=== PATIENT | male | born 1950 | race Caucasian/White ===

== ENCOUNTER 2019-10-09 19:55 | Observation (INO) | payer MEDICARE, BC ==
[2019-10-09] MEDS: Aspirin 81 MG Tab.Chew PO ONE (20:24)
[2019-10-09] MEDS ORDERED: Sodium Chloride 0.9% 10 ML Syringe FLUSH PRN (20:25)
[2019-10-09] MEDS: Aspirin 81 MG Tab.Chew ONE (20:25)
--- NOTE | 2019-10-09 20:25 | EDM.PDOC ---
ED HPI GENERAL MEDICAL PROBLEM - General Chief Complaint: General Stated Complaint: CHEST PAIN Time Seen by Provider: 10/09/19 20:12 Source of Information: Reports: Patient, Significant Other History Limitations: Reports: No Limitations - History of Present Illness INITIAL COMMENTS - FREE TEXT/NARRATIVE: Patient presents with pain in chest that started yesterday with sharp jabs in left upper chest near shoulder and some heaviness/pressure in central chest. Today it has progressively worsened over the last 7 hours. He took nitro 3 times without relief. 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 He says this feels kind of similar to those. No pain in neck, jaw, shoulder or arms. The pain is gone right now. Left Chest Pain Score (Numeric/FACES): 6 - Related Data Allergies Allergy/AdvReac Type Severity Reaction Status Date / Time Sulfa (Sulfonamide Allergy Hives Verified 10/09/19 20:19 Antibiotics) Home Meds: Home Meds ALPRAZolam [Xanax] 0.25 mg PO Q6HR PRN 09/17/14 [History] Aspirin [Brian Chewable] 81 mg PO DAILY 09/17/14 [History] Diclofenac Sodium 75 mg PO DAILY 09/17/14 [History] Metoprolol Tartrate [Lopressor] 50 mg PO BID 09/17/14 [History] Nortriptyline HCl 25 mg PO BEDTIME 09/17/14 [History] [place]-3S/DHA/Epa/Fish Oil [[place]on-3 Fish Oil 1,000 mg Sfgl] 2 cap PO DAILY [History] miSOPROStoL [Cytotec] 200 mcg PO DAILY 09/17/14 [History] Omeprazole 40 mg PO DAILY 10/19/15 [History] Albuterol [Take Home: Albuterol 18 GM, 1 INH Pack] 1 puff INH Q4H PRN 10/09/19 [ History] Clotrimazole/Betamethasone Dip [Lotrisone Cream] 1 gm TP BID PRN 10/09/19 [ History] Gabapentin [Neurontin] 600 mg PO BID 10/09/19 [History] Ibuprofen [Advil] 200 mg PO ASDIRECTED 10/09/19 [History] Metoprolol Tartrate [Lopressor] 50 mg PO BEDTIME 10/09/19 [History] Nitroglycerin [Nitrostat] 0.4 mg SL ASDIRECTED 10/09/19 [History] Umeclidinium Brm/Vilanterol Tr [Anoro Ellipta 62.5-25 MCG] 1 each IH DAILY 10/08 [History] atorvaSTATin [Lipitor] 80 mg PO BEDTIME 10/09/19 [History] cloNIDine HCL [Clonidine HCl] 0.1 mg PO BID 10/09/19 [History] Past Medical History Cardiovascular History: Reports: Bypass, Hypertension, Stents Genitourinary History: Reports: BPH Musculoskeletal History: Reports: Arthritis, Neck Pain, Chronic Psychiatric History: Reports: Panic Attack - Past Surgical History Cardiovascular Surgical History: Reports: Coronary Artery Bypass Social & Family History - Family History Family Medical History: Noncontributory - Living Situation & Occupation Living situation: Reports: ED ROS GENERAL - Review of Systems Review Of Systems: See Below Constitutional: Denies: Fever, Chills, Malaise, Weakness, Diaphoresis HEENT: Denies: Ear Pain, Throat Pain, Vision Change Respiratory: Denies: Shortness of Breath, Cough Cardiovascular: Reports: Chest Pain. Denies: Lightheadedness, Syncope GI/Abdominal: Denies: Abdominal Pain, Diarrhea, Vomiting : Denies: Dysuria Musculoskeletal: Denies: Neck Pain, Shoulder Pain, Arm Pain, Back Pain, Hand Pain Skin: Denies: Cyanosis, Jaundice, Mottled, Pallor, Diaphoresis Neurological: Denies: Confusion, Dizziness, Headache, Seizure, Syncope, Trouble Speaking, Difficulty Walking Psychiatric: Denies: Agitation, Anxiety, Confusion ED EXAM, GENERAL - Physical Exam Exam: See Below Exam Limited By: No Limitations General Appearance: Alert, WD/WN, No Apparent Distress Eye Exam: Bilateral Eye: EOMI, Normal Inspection Ears: Normal External Exam, Hearing Grossly Normal Nose: Normal Inspection, No Blood Throat/Mouth: Normal Inspection, Normal Lips, Normal Voice, No Airway Compromise Head: Atraumatic, Normocephalic Neck: Normal Inspection, Supple, Non-Tender, Full Range of Motion Respiratory/Chest: No Respiratory Distress, Lungs Clear, Normal Breath Sounds, No Accessory Muscle Use, Other (chest tender to palpation on left anterior and upper which is reproductive of symptoms) Cardiovascular: Regular Rate, Rhythm, No Murmur GI/Abdominal: Normal Bowel Sounds, Soft, Non-Tender, No Organomegaly Back Exam: Normal Inspection, Full Range of Motion. No: CVA Tenderness (L), CVA Tenderness (R) Extremities: Normal Inspection, Normal Range of Motion Neurological: Alert, Oriented, Normal Cognition, No Motor/Sensory Deficits Psychiatric: Normal Affect, Normal Mood Skin Exam: Warm, Dry, Intact, Normal Color, No Rash Course - Vital Signs Last Recorded V/S: Last Vital Signs Temp 97.5 F 10/09/19 20:00 Pulse 56 L 10/09/19 21:28 Resp 17 10/09/19 21:28 BP 161/74 H 10/09/19 21:28 Pulse Ox 96 10/09/19 21:28 - Orders/Labs/Meds Orders: Active Orders 24 hr Category Date Time Status Patient Status Manage Transfer [TRANSFER] Routine ADT 10/09/19 21:31 Ordered Patient Status [ADT] Routine ADT 10/09/19 21:30 Active EKG Documentation Completion [RC] ASDIRECTED Care 10/09/19 20:21 Active Peripheral IV Care [RC] . DIRECTED Care 10/09/19 20:25 Active TROPONIN I [CHEM] Routine Lab 10/10/19 01:00 Ordered TROPONIN I [CHEM] Routine Lab 10/10/19 06:00 Ordered Sodium Chloride 0.9% [Saline Flush] Med 10/09/19 20:25 Active 10 ml FLUSH Q8HR PRN Peripheral IV Insertion Adult [OM.PC] Routine Oth 10/09/19 20:25 Ordered Resuscitation Status Routine Resus Stat 10/09/19 21:32 Ordered EKG 12 Lead [EK] Routine Ther 10/09/19 20:20 Ordered Medication Orders Sodium Chloride (Saline Flush) 10 ml FLUSH Q8HR PRN PRN Reason: keep vein open Labs: Laboratory Tests 10/09/19 10/09/19 Range/Units 20:17 20:17 WBC 7.11 (5.00-10.00) 10^3/uL RBC 4.48 L (4.50-6.00) 10^6/uL Hgb 14.1 (13.0-17.0) g/dL Hct 43.3 (40.0-52.0) % MCV 96.7 H D (82.0-92.0) fL MCH 31.5 H (27.0-31.0) pg MCHC 32.6 (32.0-36.0) g/dL RDW 14.8 H (11.5-14.5) % Plt Count 206 (150-400) 10^3/uL MPV 9.4 (7.4-10.4) fL Immature Gran % (Auto) 0.3 (0.0-5.0) % Neut % (Auto) 57.2 (50.0-70.0) % Lymph % (Auto) 29.1 (20.0-40.0) % [place] % (Auto) 8.2 H (2.0-8.0) % Eos % (Auto) 4.5 H (1.0-3.0) % Baso % (Auto) 0.7 (0.0-1.0) % Immature Gran # (Auto) 0.02 (0.00-0.50) 10^3/uL Neut # (Auto) 4.07 (2.50-7.00) 10^3/uL Lymph # (Auto) 2.07 (1.00-4.00) 10^3/uL [place] # (Auto) 0.58 (0.10-0.80) 10^3/uL Eos # (Auto) 0.32 H (0.10-0.30) 10^3/uL Baso # (Auto) 0.05 (0.00-0.10) 10^3/uL Sodium 142 (136-145) mmol/L Potassium 4.7 (3.3-5.3) mmol/L Chloride 105 (98-115) mmol/L Carbon Dioxide 28.6 (21.0-32.0) mmol/L Anion Gap 13.1 (5-15) mmol/L BUN 21 (6-25) mg/dL Creatinine 0.78 (0.51-1.17) mg/dL Est Cr Clr Drug Dosing 90.64 mL/min Estimated GFR (MDRD) > 60 mL/min Glucose 124 H (75 - 99) mg/dL Calcium 9.0 (8.7-10.3) mg/dL Total Bilirubin 0.4 (0.2-1.0) mg/dL AST 25 (15-37) U/L ALT 52 (12-78) U/L Alkaline Phosphatase 70 (46-116) IU/L Troponin I < 0.04 (0.00-0.070) ng/mL Total Protein 7.0 (6.4-8.2) g/dL Albumin 3.49 (3.00-4.80) g/dL Meds: Medications Generic Name Dose Route Start Last Admin Trade Name Freq PRN Reason Stop Dose Admin Sodium Chloride 10 ml 10/09/19 20:25 Saline Flush FLUSH Q8HR PRN keep vein open Discontinued Medications Generic Name Dose Route Start Last Admin Trade Name Freq PRN Reason Stop Dose Admin Aspirin 324 mg 10/09/19 20:20 10/09/19 20:24 Aspirin PO 10/09/19 20:21 324 mg ONETIME ONE Administration Aspirin Confirm 10/09/19 20:20 10/09/19 20:25 Aspirin Administered 10/09/19 20:21 Not Given Dose 324 mg .ROUTE .STK-MED ONE - Re-Assessments/Exams Free Text/Narrative Re-Assessment/Exam: 10/09/19 21:36 Trop and EKG are okay. Pt is still having a short episode of chest pain in left shoulder about every 20 minutes but pretty mild. Although the normal trop after several hours of symptoms is quite reassuring, with his history and ongoing symptoms I recommended observation in house over night. Patient and his agree. Discussed case with Dr. Mendez who accepted for admission. Pt stable. Departure - Departure Time of Disposition: 21:35 Disposition: Refer to Observation Condition: Good Clinical Impression: Chest pain Qualifiers: Chest pain type: unspecified Qualified Code(s): R07.9 - Chest pain, unspecified - Discharge Information Referrals: Shannon Alatorre PA-C [Primary Care Provider] - Forms: ED Department Discharge Sepsis Event Note - Evaluation Sepsis Screening Result: No Definite Risk - Focused Exam Vital Signs: Vital Signs Temp Pulse Resp BP Pulse Ox 10/09/19 21:28 56 L 17 161/74 H 96 10/09/19 20:30 60 17 162/76 H 94 L 10/09/19 20:00 97.5 F 64 27 H 189/81 H 95 Date Exam was Performed: 10/09/19 Time Exam was Performed: 21:39 - My Orders Last 24 Hours: My Active Orders 10/09/19 20:20 EKG 12 Lead [EK] Routine 10/09/19 20:21 EKG Documentation Completion [RC] ASDIRECTED 10/09/19 20:25 Peripheral IV Care [RC] . DIRECTED Sodium Chloride 0.9% [Saline Flush] 10 ml FLUSH Q8HR PRN Peripheral IV Insertion Adult [OM.PC] Routine 10/09/19 21:30 Patient Status [ADT] Routine 10/09/19 21:31 Patient Status Manage Transfer [TRANSFER] Routine 10/09/19 21:32 Resuscitation Status Routine 10/10/19 01:00 TROPONIN I [CHEM] Routine 10/10/19 06:00 TROPONIN I [CHEM] Routine - Assessment/Plan Last 24 Hours: My Active Orders 10/09/19 20:20 EKG 12 Lead [EK] Routine 10/09/19 20:21 EKG Documentation Completion [RC] ASDIRECTED 10/09/19 20:25 Peripheral IV Care [RC] . DIRECTED Sodium Chloride 0.9% [Saline Flush] 10 ml FLUSH Q8HR PRN Peripheral IV Insertion Adult [OM.PC] Routine 10/09/19 21:30 Patient Status [ADT] Routine 10/09/19 21:31 Patient Status Manage Transfer [TRANSFER] Routine 10/09/19 21:32 Resuscitation Status Routine 10/10/19 01:00 TROPONIN I [CHEM] Routine 10/10/19 06:00 TROPONIN I [CHEM] Routine
[2019-10-09 20:54] LABS: ANION GAP 13.1 mmol/L (5-15); CHLORIDE,CL 105 mmol/L (98-115); SODIUM,NA 142 mmol/L (136-145)
[2019-10-09] MEDS ORDERED: Nitroglycerin 0.4 MG Tab.SL SL PRN (21:40)
[2019-10-09] MEDS ORDERED: Atropine 0.1 MG/ML 10 ML Syringe IVPUSH PRN (21:40)
[2019-10-09] MEDS ORDERED: Lidocaine 2% 100 MG/5 ML Syringe IVPUSH PRN (21:40)
[2019-10-09] MEDS ORDERED: EPINEPHrine 1:10,000 1 MG/10 ML Syringe IVPUSH PRN (21:40)
[2019-10-09] MEDS: ALPRAZolam 0.25 MG Tab PO PRN (22:09)
[2019-10-09] MEDS ORDERED: ALPRAZolam 0.25 MG Tab PO PRN (22:55)
[2019-10-10] MEDS: Omeprazole 20 MG Cap.CR PO SCH (09:27)
[2019-10-10] MEDS: Aspirin 81 MG Tab.Chew PO SCH (09:28)
[2019-10-10] MEDS: cloNIDine 0.1 MG Tab PO SCH (09:28)
[2019-10-10] MEDS: Metoprolol Tartrate 50 MG Tab PO SCH (09:28)
[2019-10-10] MEDS: Gabapentin 300 MG Cap PO SCH (09:29)
[2019-10-10] MEDS: Indacaterol/Glycopyrrolate 1 EA Cap.W.Dev Kit of 6 IH SCH (10:04)
--- NOTE | 2019-10-10 10:31 | PCM.DCSUM1 ---
Discharge Summary - Hospital Course Free Text/Narrative:: Date of admission: 10/09/2019 Date of discharge: 10/10/2019 Admission diagnoses: # Chest pain # CAD, s/p CABG in 2003 Discharge diagnoses: # Chest pain, ruled out NV # CAD, s/p CABG in 2003 Consultations: none Procedures: none Hospital course: 69 year old male with previous history of known NV and CABG in 2003 admitted from the ED to observation status on 10/09/2019 with chest pain, rule out NV. Patient presented to the ED via private care with pain that started one day prior to presentation described as sharp jabs in the left upper chest near the left shoulder and some heaviness/pressure in the central chest. Patient states it is similar to pain he felt with previous MIs. No pain in the neck, jaw, shoulder or arms. He took three doses of nitro at home without relief. Patient remained chest pain free overnight. Troponin negative x 3, <0.04 this AM. BMP and CBC unremarkable. No overnight concerns. Patient ready for discharge. Suspect non cardiac cause of chest pain. Noted that patient is on chronic NSAIDS with diclofenac and as needed ibuprofen despite history of known CAD. Discussed risks with patient and he has been off of diclofenac in the past , but had increase in pain and subsequently restarted. Discharge and follow-up recommendations: - Discharge to home - New medications at discharge: none - Follow-up next week for telemedicine visit with Shannon Alatorre - Consider alternative medication (possibly SNRI) to NSAID for chronic arthritis pain - Discharge Data Discharge Date: 10/10/19 Discharge Disposition: Home, Self-Care 01 Condition: Good - Referral to Home Health Primary Care Physician: Shannon Alatorre PA-C - Patient Instructions Diet: Heart Healthy Diet Activity: As Tolerated Notify Provider of: Increased Pain - Discharge Plan *PRESCRIPTION DRUG MONITORING PROGRAM REVIEWED*: Not Applicable *COPY OF PRESCRIPTION DRUG MONITORING REPORT IN PATIENT BEREKET: Not Applicable Home Medications: Home Meds ALPRAZolam [Xanax] 0.25 mg PO Q6HR PRN 09/17/14 [History] Aspirin [Brain Chewable Aspirin] 81 mg PO DAILY 09/17/14 [History] Diclofenac Sodium 75 mg PO DAILY 09/17/14 [History] Metoprolol Tartrate [Lopressor] 50 mg PO DAILY 09/17/14 [History] Nortriptyline HCl 25 mg PO BEDTIME 09/17/14 [History] [place]-3S/DHA/Epa/Fish Oil [[place]-3 Fish Oil 1,000 mg Sfgl] 2 cap PO DAILY [History] miSOPROStoL [Cytotec] 200 mcg PO DAILY 09/17/14 [History] Omeprazole 20 mg PO DAILY 10/19/15 [History] Albuterol [Take Home: Albuterol 18 GM, 1 INH Pack] 1 puff INH Q4H PRN 10/09/19 [ History] Clotrimazole/Betamethasone Dip [Lotrisone Cream] 1 gm TP BID PRN 10/09/19 [ History] Gabapentin [Neurontin] 600 mg PO BID 10/09/19 [History] Ibuprofen [Advil] 200 mg PO ASDIRECTED 10/09/19 [History] Metoprolol Tartrate [Lopressor] 50 mg PO BEDTIME 10/09/19 [History] Nitroglycerin [Nitrostat] 0.4 mg SL ASDIRECTED 10/09/19 [History] Umeclidinium Brm/Vilanterol Tr [Anoro Ellipta 62.5-25 MCG] 1 each IH DAILY 10/08 [History] atorvaSTATin [Lipitor] 80 mg PO BEDTIME 10/09/19 [History] cloNIDine HCL [Clonidine HCl] 0.1 mg PO BID 10/09/19 [History] Referrals: Shannon Alatorre PA-C [Primary Care Provider] - (Telemedicine MyChart visit at 10 AM. Sign into [facility] Chart 15 minutes before appt and go to Telemedicine. It should give you directions.) - Discharge Summary/Plan Comment DC Time >30 min.: Yes Discharge Summary/Plan Comment: This is a same day admission/discharge - Patient Data Vitals - Most Recent: Last Vital Signs Temp 37.2 C 10/10/19 06:46 Pulse 61 10/10/19 09:28 Resp 16 10/10/19 06:46 BP 150/88 H 10/10/19 09:28 Pulse Ox 98 10/10/19 06:46 Weight - Most Recent: 107.955 kg Lab Results - Last 24 hrs: Laboratory Results - last 24 hr 10/09/19 10/09/19 10/10/19 Range/Units 20:17 20:17 01:20 WBC 7.11 (5.00-10.00) 10^3/uL RBC 4.48 L (4.50-6.00) 10^6/uL Hgb 14.1 (13.0-17.0) g/dL Hct 43.3 (40.0-52.0) % MCV 96.7 H D (82.0-92.0) fL MCH 31.5 H (27.0-31.0) pg MCHC 32.6 (32.0-36.0) g/dL RDW 14.8 H (11.5-14.5) % Plt Count 206 (150-400) 10^3/uL MPV 9.4 (7.4-10.4) fL Immature Gran % (Auto) 0.3 (0.0-5.0) % Neut % (Auto) 57.2 (50.0-70.0) % Lymph % (Auto) 29.1 (20.0-40.0) % [place] % (Auto) 8.2 H (2.0-8.0) % Eos % (Auto) 4.5 H (1.0-3.0) % Baso % (Auto) 0.7 (0.0-1.0) % Immature Gran # (Auto) 0.02 (0.00-0.50) 10^3/uL Neut # (Auto) 4.07 (2.50-7.00) 10^3/uL Lymph # (Auto) 2.07 (1.00-4.00) 10^3/uL [place] # (Auto) 0.58 (0.10-0.80) 10^3/uL Eos # (Auto) 0.32 H (0.10-0.30) 10^3/uL Baso # (Auto) 0.05 (0.00-0.10) 10^3/uL Sodium 142 (136-145) mmol/L Potassium 4.7 (3.3-5.3) mmol/L Chloride 105 (98-115) mmol/L Carbon Dioxide 28.6 (21.0-32.0) mmol/L Anion Gap 13.1 (5-15) mmol/L BUN 21 (6-25) mg/dL Creatinine 0.78 (0.51-1.17) mg/dL Est Cr Clr Drug Dosing 90.64 mL/min Estimated GFR (MDRD) > 60 mL/min Glucose 124 H (75 - 99) mg/dL Calcium 9.0 (8.7-10.3) mg/dL Total Bilirubin 0.4 (0.2-1.0) mg/dL AST 25 (15-37) U/L ALT 52 (12-78) U/L Alkaline Phosphatase 70 (46-116) IU/L Troponin I < 0.04 0.04 (0.00-0.070) ng/mL Total Protein 7.0 (6.4-8.2) g/dL Albumin 3.49 (3.00-4.80) g/dL 10/10/19 Range/Units 07:00 WBC (5.00-10.00) 10^3/uL RBC (4.50-6.00) 10^6/uL Hgb (13.0-17.0) g/dL Hct (40.0-52.0) % MCV (82.0-92.0) fL MCH (27.0-31.0) pg MCHC (32.0-36.0) g/dL RDW (11.5-14.5) % Plt Count (150-400) 10^3/uL MPV (7.4-10.4) fL Immature Gran % (Auto) (0.0-5.0) % Neut % (Auto) (50.0-70.0) % Lymph % (Auto) (20.0-40.0) % [place] % (Auto) (2.0-8.0) % Eos % (Auto) (1.0-3.0) % Baso % (Auto) (0.0-1.0) % Immature Gran # (Auto) (0.00-0.50) 10^3/uL Neut # (Auto) (2.50-7.00) 10^3/uL Lymph # (Auto) (1.00-4.00) 10^3/uL [place] # (Auto) (0.10-0.80) 10^3/uL Eos # (Auto) (0.10-0.30) 10^3/uL Baso # (Auto) (0.00-0.10) 10^3/uL Sodium (136-145) mmol/L Potassium (3.3-5.3) mmol/L Chloride (98-115) mmol/L Carbon Dioxide (21.0-32.0) mmol/L Anion Gap (5-15) mmol/L BUN (6-25) mg/dL Creatinine (0.51-1.17) mg/dL Est Cr Clr Drug Dosing mL/min Estimated GFR (MDRD) mL/min Glucose (75 - 99) mg/dL Calcium (8.7-10.3) mg/dL Total Bilirubin (0.2-1.0) mg/dL AST (15-37) U/L ALT (12-78) U/L Alkaline Phosphatase (46-116) IU/L Troponin I < 0.04 (0.00-0.070) ng/mL Total Protein (6.4-8.2) g/dL Albumin (3.00-4.80) g/dL Med Orders - Current: Current Medications Alprazolam (Xanax) 0.25 mg PO Q6H PRN PRN Reason: Anxiety Last Admin: 10/09/19 22:09 Dose: 0.25 mg Alprazolam (Xanax) 0.25 mg PO Q6HR PRN PRN Reason: Anxiety Aspirin (Aspirin) 81 mg PO DAILY [facility] Last Admin: 10/10/19 09:28 Dose: Not Given Atorvastatin Calcium (Lipitor) 80 mg PO BEDTIME [facility] Atropine Sulfate (Atropine 0.1 Mg/Ml) 0 mg IVPUSH ASDIRECTED PRN PRN Reason: Heart. Clonidine HCl (Catapres) 0.1 mg PO BID [facility] Last Admin: 10/10/19 09:28 Dose: Not Given Epinephrine HCl (Epinephrine 1:10,000) 1 mg IVPUSH ASDIRECTED PRN PRN Reason: Heart. Gabapentin (Neurontin) 600 mg PO BID [facility] Last Admin: 10/10/19 09:29 Dose: Not Given Glycopyrrolate/Indacaterol (Utibron Neohaler 27.5-15.6 Mcg) 1 each IH BID [facility] Last Admin: 10/10/19 10:04 Dose: Not Given Lidocaine HCl (Xylocaine 2%) 0 mg IVPUSH ASDIRECTED PRN PRN Reason: Heart. Metoprolol Tartrate (Lopressor) 50 mg PO BEDTIME [facility] Metoprolol Tartrate (Lopressor) 50 mg PO DAILY [facility] Last Admin: 10/10/19 09:28 Dose: Not Given Nitroglycerin (Nitrostat) 0.4 mg SL ASDIRECTED PRN PRN Reason: Heart. Nortriptyline HCl (Nortriptyline) 25 mg PO BEDTIME [facility] Omeprazole (Omeprazole) 20 mg PO ACBREAKFAST [facility] Last Admin: 10/10/19 09:27 Dose: Not Given Sodium Chloride (Saline Flush) 10 ml FLUSH Q8HR PRN PRN Reason: keep vein open Discontinued Medications Aspirin (Aspirin) 324 mg PO ONETIME ONE Stop: 10/09/19 20:21 Last Admin: 10/09/19 20:24 Dose: 324 mg Aspirin (Aspirin) Confirm Administered Dose 324 mg .ROUTE .STK-MED ONE Stop: 10/09/19 20:21 Last Admin: 10/09/19 20:25 Dose: Not Given
--- NOTE | 2019-10-10 10:32 | PCM.HP.2 ---
H&P History of Present Illness - General Date of Service: 10/10/19 Admit Problem/Dx: Admission Diagnosis/Problem Admission Diagnosis/Problem Chest pain Source of Information: Patient History Limitations: Reports: No Limitations - History of Present Illness Initial Comments - Free Text/Narative: 69 year old male with previous history of known AL and CABG in 2003 admitted from the ED to observation status on 10/09/2019 with chest pain, rule out AL. Patient presented to the ED via private care with pain that started one day prior to presentation described as sharp jabs in the left upper chest near the left shoulder and some heaviness/pressure in the central chest. Patient states it is similar to pain he felt with previous MIs. No pain in the neck, jaw, shoulder or arms. He took three doses of nitro at home without relief. This morning on rounds patient has had no recurrence of pain. No over night concerns and feels ready for discharge. Left Chest Pain Score (Numeric/FACES): 6 - Related Data Allergies/Adverse Reactions: Allergies Allergy/AdvReac Type Severity Reaction Status Date / Time Sulfa (Sulfonamide Allergy Hives Verified 10/09/19 20:19 Antibiotics) Home Medications: Home Meds ALPRAZolam [Xanax] 0.25 mg PO Q6HR PRN 09/17/14 [History] Aspirin [Brian Chewable Aspirin] 81 mg PO DAILY 09/17/14 [History] Diclofenac Sodium 75 mg PO DAILY 09/17/14 [History] Metoprolol Tartrate [Lopressor] 50 mg PO DAILY 09/17/14 [History] Nortriptyline HCl 25 mg PO BEDTIME 09/17/14 [History] Hudson-3S/DHA/Epa/Fish Oil [Hudson-3 Fish Oil 1,000 mg Sfgl] 2 cap PO DAILY [History] miSOPROStoL [Cytotec] 200 mcg PO DAILY 09/17/14 [History] Omeprazole 20 mg PO DAILY 10/19/15 [History] Albuterol [Take Home: Albuterol 18 GM, 1 INH Pack] 1 puff INH Q4H PRN 10/09/19 [ History] Clotrimazole/Betamethasone Dip [Lotrisone Cream] 1 gm TP BID PRN 10/09/19 [ History] Gabapentin [Neurontin] 600 mg PO BID 10/09/19 [History] Ibuprofen [Advil] 200 mg PO ASDIRECTED 10/09/19 [History] Metoprolol Tartrate [Lopressor] 50 mg PO BEDTIME 10/09/19 [History] Nitroglycerin [Nitrostat] 0.4 mg SL ASDIRECTED 10/09/19 [History] Umeclidinium Brm/Vilanterol Tr [Anoro Ellipta 62.5-25 MCG] 1 each IH DAILY 10/08 [History] atorvaSTATin [Lipitor] 80 mg PO BEDTIME 10/09/19 [History] cloNIDine HCL [Clonidine HCl] 0.1 mg PO BID 10/09/19 [History] Past Medical History Cardiovascular History: Reports: Bypass, Hypertension, AL, Stents Gastrointestinal History: Reports: Diverticulosis, Irritable Bowel Syndrome Genitourinary History: Reports: BPH Musculoskeletal History: Reports: Arthritis, Back Pain, Chronic, Neck Pain, Chronic Neurological History: Reports: Neuropathy, Peripheral Psychiatric History: Reports: Panic Attack - Past Surgical History Cardiovascular Surgical History: Reports: Coronary Artery Bypass Respiratory Surgical History: Reports: None GI Surgical History: Reports: Other (See Below) Other GI Surgeries/Procedures: lap-sujata Musculoskeletal Surgical History: Reports: Carpal Tunnel, Knee Replacement Social & Family History - Family History Cardiac: Reports: CAD - Tobacco Use Smoking Status *Q: Former Smoker Used Tobacco, but Quit: Yes Month/Year Tobacco Last Used: quit 2003 - Caffeine Use Caffeine Use: Reports: Soda, Tea - Recreational Drug Use Recreational Drug Use: No - Living Situation & Occupation Living situation: Reports: H&P Review of Systems - Review of Systems: Review Of Systems: See Below General: Denies: Fever, Chills, Fatigue HEENT: Denies: Ear Pain, Eye Pain, Headaches Pulmonary: Denies: Shortness of Breath, Wheezing, Cough Cardiovascular: Denies: Chest Pain, Palpitations, Dyspnea on Exertion, Edema Gastrointestinal: Denies: Abdominal Pain, Constipation, Diarrhea, Nausea Genitourinary: Denies: Dysuria, Hematuria, Flank Pain Musculoskeletal: Denies: Neck Pain, Shoulder Pain, Arm Pain Skin: Denies: Cyanosis, Jaundice, Rash Psychiatric: Denies: Confusion, Depression, Mood Lability Neurological: Denies: Confusion, Dizziness, Headache Exam - Exam Exam: See Below - Vital Signs Vital Signs: Last Vital Signs Temp 37.2 C 10/10/19 06:46 Pulse 61 10/10/19 09:28 Resp 16 10/10/19 06:46 BP 150/88 H 10/10/19 09:28 Pulse Ox 98 10/10/19 06:46 Weight: 107.955 kg - Exam Physical Exam Comments:: GENERAL: Well-appearing adult sitting up in bed, in no acute distress. in room. HEENT: Normocephalic, atraumatic. Conjunctiva clear. Nares patent without discharge. Mucous membranes moist, posterior pharynx unremarkable. NECK: Supple, no masses. CV: Regular rate and rhythm, no murmurs, rubs, or gallops. PULMONARY: Normal effort, clear to auscultation bilaterally, no wheezes, rales, or rhonchi. ABDOMEN: Positive bowel sounds, soft, nontender, nondistended. EXTREMITIES: No edema, cyanosis, or clubbing. MUSCULOSKELETAL: Moves all extremities well. NEUROLOGICAL: No obvious deficits. DERMATOLOGIC: No rashes or suspicious lesions in exposed areas. PSYCHIATRIC: Alert, interactive, appropriate affect. - Patient Data Lab Results Last 24 hrs: Laboratory Results - last 24 hr 10/09/19 10/09/19 10/10/19 Range/Units 20:17 20:17 01:20 WBC 7.11 (5.00-10.00) 10^3/uL RBC 4.48 L (4.50-6.00) 10^6/uL Hgb 14.1 (13.0-17.0) g/dL Hct 43.3 (40.0-52.0) % MCV 96.7 H D (82.0-92.0) fL MCH 31.5 H (27.0-31.0) pg MCHC 32.6 (32.0-36.0) g/dL RDW 14.8 H (11.5-14.5) % Plt Count 206 (150-400) 10^3/uL MPV 9.4 (7.4-10.4) fL Immature Gran % (Auto) 0.3 (0.0-5.0) % Neut % (Auto) 57.2 (50.0-70.0) % Lymph % (Auto) 29.1 (20.0-40.0) % [place] % (Auto) 8.2 H (2.0-8.0) % Eos % (Auto) 4.5 H (1.0-3.0) % Baso % (Auto) 0.7 (0.0-1.0) % Immature Gran # (Auto) 0.02 (0.00-0.50) 10^3/uL Neut # (Auto) 4.07 (2.50-7.00) 10^3/uL Lymph # (Auto) 2.07 (1.00-4.00) 10^3/uL [place] # (Auto) 0.58 (0.10-0.80) 10^3/uL Eos # (Auto) 0.32 H (0.10-0.30) 10^3/uL Baso # (Auto) 0.05 (0.00-0.10) 10^3/uL Sodium 142 (136-145) mmol/L Potassium 4.7 (3.3-5.3) mmol/L Chloride 105 (98-115) mmol/L Carbon Dioxide 28.6 (21.0-32.0) mmol/L Anion Gap 13.1 (5-15) mmol/L BUN 21 (6-25) mg/dL Creatinine 0.78 (0.51-1.17) mg/dL Est Cr Clr Drug Dosing 90.64 mL/min Estimated GFR (MDRD) > 60 mL/min Glucose 124 H (75 - 99) mg/dL Calcium 9.0 (8.7-10.3) mg/dL Total Bilirubin 0.4 (0.2-1.0) mg/dL AST 25 (15-37) U/L ALT 52 (12-78) U/L Alkaline Phosphatase 70 (46-116) IU/L Troponin I < 0.04 0.04 (0.00-0.070) ng/mL Total Protein 7.0 (6.4-8.2) g/dL Albumin 3.49 (3.00-4.80) g/dL 10/10/19 Range/Units 07:00 WBC (5.00-10.00) 10^3/uL RBC (4.50-6.00) 10^6/uL Hgb (13.0-17.0) g/dL Hct (40.0-52.0) % MCV (82.0-92.0) fL MCH (27.0-31.0) pg MCHC (32.0-36.0) g/dL RDW (11.5-14.5) % Plt Count (150-400) 10^3/uL MPV (7.4-10.4) fL Immature Gran % (Auto) (0.0-5.0) % Neut % (Auto) (50.0-70.0) % Lymph % (Auto) (20.0-40.0) % [place] % (Auto) (2.0-8.0) % Eos % (Auto) (1.0-3.0) % Baso % (Auto) (0.0-1.0) % Immature Gran # (Auto) (0.00-0.50) 10^3/uL Neut # (Auto) (2.50-7.00) 10^3/uL Lymph # (Auto) (1.00-4.00) 10^3/uL [place] # (Auto) (0.10-0.80) 10^3/uL Eos # (Auto) (0.10-0.30) 10^3/uL Baso # (Auto) (0.00-0.10) 10^3/uL Sodium (136-145) mmol/L Potassium (3.3-5.3) mmol/L Chloride (98-115) mmol/L Carbon Dioxide (21.0-32.0) mmol/L Anion Gap (5-15) mmol/L BUN (6-25) mg/dL Creatinine (0.51-1.17) mg/dL Est Cr Clr Drug Dosing mL/min Estimated GFR (MDRD) mL/min Glucose (75 - 99) mg/dL Calcium (8.7-10.3) mg/dL Total Bilirubin (0.2-1.0) mg/dL AST (15-37) U/L ALT (12-78) U/L Alkaline Phosphatase (46-116) IU/L Troponin I < 0.04 (0.00-0.070) ng/mL Total Protein (6.4-8.2) g/dL Albumin (3.00-4.80) g/dL Result Diagrams: 10/09/19 20:17 10/09/19 20:17 Sepsis Event Note - Evaluation Sepsis Screening Result: No Definite Risk - Focused Exam Vital Signs: Vital Signs Temp Pulse Pulse Resp BP BP Pulse Ox 10/10/19 09:28 61 150/88 H 10/10/19 06:46 37.2 C 55 L 16 136/87 98 10/10/19 03:00 35.9 C L 60 20 151/89 H 94 L Date Exam was Performed: 10/10/19 Time Exam was Performed: 11:09 Problem List Initiated/Reviewed/Updated: Yes Orders Last 24hrs: Active Orders 24 hr Category Date Time Status Patient Status Manage Transfer [TRANSFER] Routine ADT 10/09/19 21:31 Active Patient Status [ADT] Routine ADT 10/09/19 21:30 Active Ready for Discharge [RC] PER UNIT ROUTINE Care 10/10/19 10:28 Ordered Telemetry Monitoring [Cardiac Monitoring] [RC] 2300, Care 10/09/19 21:40 Active 0300,0700 Up With Assistance [RC] ASDIRECTED Care 10/09/19 22:54 Active Heart Healthy Diet [DIET] Diet 10/10/19 Breakfast Active ALPRAZolam [Xanax] Med 10/09/19 21:41 Active 0.25 mg PO Q6H PRN ALPRAZolam [Xanax] Med 10/09/19 22:55 Active 0.25 mg PO Q6HR PRN Aspirin Med 10/10/19 09:00 Active 81 mg PO DAILY Atropine [Atropine 0.1 MG/ML] Med 10/09/19 21:40 Active See Dose Instructions IVPUSH ASDIRECTED PRN EPINEPHrine [EPINEPHrine 1:10,000] Med 10/09/19 21:40 Active 1 mg IVPUSH ASDIRECTED PRN Gabapentin [Neurontin] Med 10/10/19 09:00 Active 600 mg PO BID Indacaterol/Glycopyrrolate [Utibron Neohaler 27.5-15.6 Med 10/10/19 09:00 Active MCG] 1 each IH BID Lidocaine 2% [Xylocaine 2%] Med 10/09/19 21:40 Active See Dose Instructions IVPUSH ASDIRECTED PRN Metoprolol Tartrate [Lopressor] Med 10/10/19 21:00 Active 50 mg PO BEDTIME Metoprolol Tartrate [Lopressor] Med 10/10/19 09:00 Active 50 mg PO DAILY Nitroglycerin [Nitrostat] Med 10/09/19 21:40 Active 0.4 mg SL ASDIRECTED PRN Nortriptyline Med 10/10/19 21:00 Active 25 mg PO BEDTIME Omeprazole Med 10/10/19 07:30 Active 20 mg PO ACBREAKFAST Sodium Chloride 0.9% [Saline Flush] Med 10/09/19 20:25 Active 10 ml FLUSH Q8HR PRN atorvaSTATin [Lipitor] Med 10/10/19 21:00 Active 80 mg PO BEDTIME cloNIDine [Catapres] Med 10/10/19 09:00 Active 0.1 mg PO BID Peripheral IV Insertion Adult [OM.PC] Routine Oth 10/09/19 20:25 Ordered Resuscitation Status Routine Resus Stat 10/09/19 21:32 Ordered Medication Orders Alprazolam (Xanax) 0.25 mg PO Q6H PRN PRN Reason: Anxiety Last Admin: 10/09/19 22:09 Dose: 0.25 mg Alprazolam (Xanax) 0.25 mg PO Q6HR PRN PRN Reason: Anxiety Aspirin (Aspirin) 81 mg PO DAILY [facility] Last Admin: 10/10/19 09:28 Dose: Not Given Atorvastatin Calcium (Lipitor) 80 mg PO BEDTIME [facility] Atropine Sulfate (Atropine 0.1 Mg/Ml) 0 mg IVPUSH ASDIRECTED PRN PRN Reason: Heart. Clonidine HCl (Catapres) 0.1 mg PO BID [facility] Last Admin: 10/10/19 09:28 Dose: Not Given Epinephrine HCl (Epinephrine 1:10,000) 1 mg IVPUSH ASDIRECTED PRN PRN Reason: Heart. Gabapentin (Neurontin) 600 mg PO BID [facility] Last Admin: 10/10/19 09:29 Dose: Not Given Glycopyrrolate/Indacaterol (Utibron Neohaler 27.5-15.6 Mcg) 1 each IH BID [facility] Last Admin: 10/10/19 10:04 Dose: Not Given Lidocaine HCl (Xylocaine 2%) 0 mg IVPUSH ASDIRECTED PRN PRN Reason: Heart. Metoprolol Tartrate (Lopressor) 50 mg PO BEDTIME [facility] Metoprolol Tartrate (Lopressor) 50 mg PO DAILY [facility] Last Admin: 10/10/19 09:28 Dose: Not Given Nitroglycerin (Nitrostat) 0.4 mg SL ASDIRECTED PRN PRN Reason: Heart. Nortriptyline HCl (Nortriptyline) 25 mg PO BEDTIME [facility] Omeprazole (Omeprazole) 20 mg PO ACBREAKFAST [facility] Last Admin: 10/10/19 09:27 Dose: Not Given Sodium Chloride (Saline Flush) 10 ml FLUSH Q8HR PRN PRN Reason: keep vein open Assessment/Plan Comment:: HPI summary: 69 year old male with previous history of known AL and CABG in 2003 admitted from the ED to observation status on 10/09/2019 with chest pain, rule out AL. Patient presented to the ED via private care with pain that started one day prior to presentation described as sharp jabs in the left upper chest near the left shoulder and some heaviness/pressure in the central chest. Patient states it is similar to pain he felt with previous MIs. No pain in the neck, jaw, shoulder or arms. He took three doses of nitro at home without relief. ED course: Troponin and EKG unremarkable, however given previous cardiac history patient was admitted telemetry observation status. Hospital course: No overnight concerns. No concerns about telemetry. Chest pain resolved. Troponin negative x 3, <0.04 this AM. BMP and CBC unremarkable. Hospitalization problems and plan: # Chest pain # CAD, s/p CABG in 2003 Chronic, stable conditions: # H/O AAA # Essential Hypertension # Hypercholesterolemia # GERD # Obesity
[2019-10-10 11:17] VITALS: BP 150/90; PULSE 60
[2019-10-10] MEDS ORDERED: Metoprolol Tartrate 50 MG Tab PO SCH (21:00)
[2019-10-10] MEDS ORDERED: atorvaSTATin 40 MG Tab PO SCH (21:00)
[2019-10-10] MEDS ORDERED: Nortriptyline 25 MG Cap PO SCH (21:00)
== END 2019-10-10 11:00 | disposition home or self-care (01) ==
LOC: KA.ED 19:55 → KA.MS 21:30
PROVIDERS: ADMIT Family Medicine; ATTEND Family Medicine
DX: R07.89 Other chest pain (principal); I25.10 Atherosclerotic heart disease of native coronary artery without angina pectoris; I25.2 Old myocardial infarction; Z88.2 Allergy status to sulfonamides; Z79.82 Long term (current) use of aspirin; Z79.899 Other long term (current) drug therapy; Z95.1 Presence of aortocoronary bypass graft
CPT/HCPCS: 36415; 80053; 84484; 85025; 93005; 99285; A9270; 99284; G0378

== ENCOUNTER 2021-08-11 10:51 | Day surgery (SDC) | payer MEDICARE, BC ==
[2021-08-11] MEDS ORDERED: Lactated Ringers 1,000 ML IV SCH (11:00)
[2021-08-11] MEDS ORDERED: Propofol 200 MG/20 ML SDV ONE (12:07)
[2021-08-11] MEDS ORDERED: Midazolam 1 MG/ML 2 ML SDV ONE (12:07)
[2021-08-11] MEDS ORDERED: Lidocaine 2% 5 ML SDV ONE (12:08)
[2021-08-11] MEDS ORDERED: Lactated Ringers 1,000 ML ONE (12:50)
[2021-08-11 18:11] VITALS: BP 140/72; PULSE 57
== END 2021-08-11 14:45 | disposition home or self-care (01) ==
LOC: KA.SDS 10:51
PROVIDERS: ATTEND Surgery
DX: K62.89 Other specified diseases of anus and rectum (principal); K57.32 Diverticulitis of large intestine without perforation or abscess without bleeding; K22.2 Esophageal obstruction; K44.9 Diaphragmatic hernia without obstruction or gangrene; K29.50 Unspecified chronic gastritis without bleeding; K21.9 Gastro-esophageal reflux disease without esophagitis; G47.33 Obstructive sleep apnea (adult) (pediatric); E66.9 Obesity, unspecified; E55.9 Vitamin D deficiency, unspecified; I10 Essential (primary) hypertension; E78.00 Pure hypercholesterolemia, unspecified; I25.10 Atherosclerotic heart disease of native coronary artery without angina pectoris; F41.1 Generalized anxiety disorder; I25.2 Old myocardial infarction; M81.0 Age-related osteoporosis without current pathological fracture; Z90.49 Acquired absence of other specified parts of digestive tract; Z79.899 Other long term (current) drug therapy; Z88.2 Allergy status to sulfonamides; Z98.890 Other specified postprocedural states; Z68.37 Body mass index [BMI] 37.0-37.9, adult
CPT/HCPCS: J2250; J2704; J7120

== ENCOUNTER 2021-12-18 10:00 | Emergency (ER) | payer MEDICARE, BC ==
[2021-12-18] MEDS: Aspirin 81 MG Tab.Chew PO ONE (10:28)
[2021-12-18] MEDS: Morphine 2 MG/ML SYRINGE IVPUSH ONE (10:30)
[2021-12-18] MEDS: Morphine 2 MG/ML SYRINGE ONE (10:33)
[2021-12-18 10:45] LABS: ANION GAP 10.6 mmol/L (5-15); CHLORIDE,CL 102 mmol/L (98-107); SODIUM,NA 137 mmol/L (136-145)
[2021-12-18 10:46] LABS: ESTIMATED GFR > 60 mL/min
[2021-12-18] MEDS: Sodium Chloride 0.9% 500 ML IV SCH (11:52)
[2021-12-18] MEDS: Potassium Chloride 10 MEQ Tab.ER PO ONE (11:53)
[2021-12-18] MEDS: Alum Hydrox/Mag Hydrox/Simeth 30 ML, Lidocaine 2% 15 ML PO ONE ×2 (14:44)
[2021-12-18 14:48] VITALS: BP 101/54; PULSE 59
== END 2021-12-18 15:20 | disposition home or self-care (01) ==
LOC: KA.ED 10:00
DX: I20.9 Angina pectoris, unspecified (principal); I10 Essential (primary) hypertension; I25.2 Old myocardial infarction; Z87.891 Personal history of nicotine dependence; Z79.899 Other long term (current) drug therapy; Z88.2 Allergy status to sulfonamides; Z79.82 Long term (current) use of aspirin; R06.02 Shortness of breath
CPT/HCPCS: 36415; 71045; 80053; 83880; 84484; 85025; 85610; 93005; 93010; 96374; 99284; 99285-25; A9270-GY; J2270; J7040